=== PATIENT | male | born 1965 | race Caucasian/White ===

== ENCOUNTER 2021-08-22 18:09 | Inpatient (IN) | payer BC, OTHER ==
[~2021-08-22] VITALS: Ht 165.1 cm; Wt 88.5 kg
[2021-08-22 18:55] LABS: BASOPHILS # (AUTO) 0.1 (0.0-0.1); BASOPHILS % 0.7 % (0.0-1.0); EOSINOPHILS # (AUTO) 0.5 (0.0-0.4); EOSINOPHILS % 4.2 % (0.0-6.0); HEMATOCRIT 36.9 % (38.2-49.6); HEMOGLOBIN 12.1 g/dL (14.0-18.0); LYMPHOCYTES # (AUTO) 1.6 (1.0-3.2); MEAN CORPUSCULAR HEMOGLOBIN 29.4 pg (28-32); MEAN CORPUSCULAR HGB CONC 32.8 g/dL (31-35); MEAN CORPUSCULAR VOLUME 89.8 fL (81-99); MONOCYTES # (AUTO) 1.4 (0.2-0.8); MONOCYTES % 12.9 % (4.4-11.3); NEUTROPHILS # (AUTO) 7.2 (2.1-6.9); NEUTROPHILS % 66.5 % (38.7-80.0); PLATELET COUNT 186 x10e3/uL (140-360); RED BLOOD COUNT 4.11 x10e6/uL (4.3-5.7); RED CELL DISTRIBUTION WIDTH 15.4 % (11.7-14.4)
[2021-08-22] MEDS ORDERED: PIPERACILLIN/TAZOBACTAM 3.375 GM in SODIUM CHLORIDE 0.9% 50ML 50 ML IV SCH (19:00)
[2021-08-22 19:16] LABS: ALBUMIN 3.4 g/dL (3.5-5.0); ALBUMIN/GLOBULIN RATIO 0.8 (0.8-2.0); ANION GAP 15.9 mmol/L (8-16); CREATININE, SERUM 1.55 mg/dL (0.72-1.25); POTASSIUM 3.9 mmol/L (3.5-5.1)
[2021-08-22] MEDS ORDERED: SODIUM CHLORIDE FLUSH 10 ML SYR INJ PRN (20:15)
[2021-08-22] MEDS ORDERED: ONDANSETRON HCL INJ 2MG/ML 2ML 2 MG/ML VIAL IV PRN (20:15)
[2021-08-22] MEDS ORDERED: DEXTROSE 50% SYRINGE 50 ML IV PRN (20:30)
[2021-08-22] MEDS ORDERED: ACETAMINOPHEN 325 MG TAB PO PRN (20:45)
[2021-08-22] MEDS ORDERED: ACETAMINOPHEN/CODEINE 300MG - 30MG TAB PO PRN (20:45)
[2021-08-22] MEDS: INSULIN LISPRO 100 UNIT/1 ML 3ML VIAL SQ SCH (21:00)
[2021-08-22] MEDS ORDERED: HYDROMORPHONE 1MG/1ML INJ IV PRN (21:00)
[2021-08-22 21:14] VITALS: BP 128/94
[2021-08-22 21:30] VITALS: BP 128/94
[2021-08-22] MEDS ORDERED: SODIUM CHLORIDE 0.9% 250ML 250 ML ONE (21:40)
[2021-08-22] MEDS: Vancomycin IV 1.25 GM in SODIUM CHLORIDE 0.9% 250ML 250 ML IV SCH (21:45)
[2021-08-22] MEDS ORDERED: ULTRAM50 MG PO (22:08)
[2021-08-22] MEDS ORDERED: ASPIRIN81 MG PO (22:08)
[2021-08-22] MEDS ORDERED: LANTUS 3ML100 UNITS/ SC (22:08)
[2021-08-22] MEDS ORDERED: VITAMIN B-1100 M1 PO (22:08)
[2021-08-22] MEDS ORDERED: METFORMIN HCL500 MG PO (22:08)
[2021-08-22] MEDS ORDERED: BENICAR20 MG PO (22:08)
[2021-08-22] MEDS ORDERED: FOLIC ACID-VIT1 EACH PO (22:08)
[2021-08-22] MEDS ORDERED: JARDIANCE10 MG PO (22:08)
[2021-08-22] MEDS ORDERED: DICLOFENAC SODI75 MG PO (22:08)
[2021-08-22] MEDS ORDERED: AMLODIPINE BESY10 MG PO (22:08)
[2021-08-22] MEDS ORDERED: CLONIDINE HCL0.2 MG PO (22:08)
[2021-08-22] MEDS ORDERED: CYMBALTA60 MG PO (22:08)
[2021-08-22] MEDS ORDERED: NEURONTIN400 MG PO (22:08)
[2021-08-22] MEDS ORDERED: CARVEDILOL12.5 MG PO (22:08)
[2021-08-23] VITALS (9 sets, daily range): BP systolic 105–157; BP diastolic 58–98
[2021-08-23] MEDS: PIPERACILLIN/TAZOBACTAM 3.375 GM in SODIUM CHLORIDE 0.9% 50ML 50 ML IV SCH ×3 (04:25→19:57)
[2021-08-23] MEDS ORDERED: HYDROMORPHONE 1MG/1ML INJ IV PRN (04:45)
[2021-08-23 04:55] LABS: BASOPHILS # (AUTO) 0.1 (0.0-0.1); BASOPHILS % 0.8 % (0.0-1.0); EOSINOPHILS # (AUTO) 0.5 (0.0-0.4); EOSINOPHILS % 5.4 % (0.0-6.0); HEMATOCRIT 36.4 % (38.2-49.6); HEMOGLOBIN 11.9 g/dL (14.0-18.0); LYMPHOCYTES # (AUTO) 1.6 (1.0-3.2); LYMPHOCYTES % 18.5 % (18.0-39.1); MEAN CORPUSCULAR HEMOGLOBIN 29.1 pg (28-32); MEAN CORPUSCULAR HGB CONC 32.7 g/dL (31-35); MONOCYTES # (AUTO) 1.1 (0.2-0.8); MONOCYTES % 12.5 % (4.4-11.3); NEUTROPHILS # (AUTO) 5.5 (2.1-6.9); NEUTROPHILS % 62.2 % (38.7-80.0); PLATELET COUNT 178 x10e3/uL (140-360); RED BLOOD COUNT 4.09 x10e6/uL (4.3-5.7); RED CELL DISTRIBUTION WIDTH 15.2 % (11.7-14.4)
[2021-08-23 05:19] LABS: ANION GAP 11.2 mmol/L (8-16); CALCIUM 8.9 mg/dL (8.4-10.2); CREATININE, SERUM 1.45 mg/dL (0.72-1.25); POTASSIUM 4.2 mmol/L (3.5-5.1)
[2021-08-23] MEDS: INSULIN LISPRO 100 UNIT/1 ML 3ML VIAL SQ SCH ×4 (07:30→20:33)
[2021-08-23] MEDS ORDERED: DULOXETINE HCL 30 MG DELAYED RELEASE PO SCH (09:00)
[2021-08-23] MEDS ORDERED: GABAPENTIN 400 MG CAP PO SCH (09:00)
[2021-08-23] MEDS ORDERED: INSULIN GLARGINE 100 UNITS/ML VIAL SC SCH (09:00)
[2021-08-23] MEDS: HYDROMORPHONE 2MG/ML 2 MG/ML ML IV PRN ×4 (09:50→22:41)
[2021-08-23] MEDS: Vancomycin IV 1.25 GM in SODIUM CHLORIDE 0.9% 250ML 250 ML IV SCH ×2 (09:56→20:47)
[2021-08-23] MEDS: DULOXETINE HCL 30 MG DELAYED RELEASE PO SCH (09:57)
[2021-08-23] MEDS: ASPIRIN 81 MG CHEW TAB PO SCH (09:57)
[2021-08-23] MEDS: OLMESARTAN 20 MG TAB PO SCH (09:57)
[2021-08-23] MEDS: CARVEDILOL 12.5 MG TAB PO SCH ×2 (09:57→16:10)
[2021-08-23] MEDS: AMLODIPINE BESYLATE 10 MG TAB PO SCH (09:58)
[2021-08-23] MEDS: EMPAGLIFLOZIN 10 MG TABLET PO SCH (09:58)
[2021-08-23] MEDS: THIAMINE HCL 100 MG TAB PO SCH (09:59)
[2021-08-23] MEDS: GABAPENTIN 300 MG CAP PO SCH ×2 (10:05→16:10)
[2021-08-23] MEDS: TRAMADOL HCL 50 MG TAB PO PRN ×2 (15:18→23:31)
[2021-08-24] VITALS (7 sets, daily range): BP systolic 116–160; BP diastolic 93–112
[2021-08-24] MEDS: HYDROMORPHONE 2MG/ML 2 MG/ML ML IV PRN ×5 (03:18→20:51)
[2021-08-24] MEDS: PIPERACILLIN/TAZOBACTAM 3.375 GM in SODIUM CHLORIDE 0.9% 50ML 50 ML IV SCH ×3 (04:17→20:56)
[2021-08-24] MEDS: INSULIN LISPRO 100 UNIT/1 ML 3ML VIAL SQ SCH ×4 (07:30→21:35)
[2021-08-24] MEDS: ASPIRIN 81 MG CHEW TAB PO SCH (08:17)
[2021-08-24] MEDS: CARVEDILOL 12.5 MG TAB PO SCH ×2 (08:18→16:42)
[2021-08-24] MEDS: GABAPENTIN 300 MG CAP PO SCH ×2 (08:18→16:42)
[2021-08-24] MEDS: DULOXETINE HCL 30 MG DELAYED RELEASE PO SCH (08:18)
[2021-08-24] MEDS: EMPAGLIFLOZIN 10 MG TABLET PO SCH (08:18)
[2021-08-24] MEDS: OLMESARTAN 20 MG TAB PO SCH (08:18)
[2021-08-24] MEDS: AMLODIPINE BESYLATE 10 MG TAB PO SCH (08:19)
[2021-08-24] MEDS: THIAMINE HCL 100 MG TAB PO SCH (08:19)
[2021-08-24] MEDS ORDERED: Vancomycin IV 1 GM in SODIUM CHLORIDE 0.9% 250ML 250 ML IV SCH (09:15)
[2021-08-24] MEDS: LISINOPRIL 10 MG TAB PO SCH ×3 (10:00→11:59)
[2021-08-24] MEDS: TRAMADOL HCL 50 MG TAB PO PRN ×2 (11:40→14:00)
[2021-08-24] MEDS ORDERED: ONDANSETRON HCL 4 MG ORAL DISINTEGRATING TAB PO PRN (14:30)
[2021-08-25] VITALS (7 sets, daily range): BP systolic 123–154; BP diastolic 79–99
[2021-08-25] MEDS: HYDROMORPHONE 2MG/ML 2 MG/ML ML IV PRN ×6 (01:30→22:25)
[2021-08-25] MEDS: PIPERACILLIN/TAZOBACTAM 3.375 GM in SODIUM CHLORIDE 0.9% 50ML 50 ML IV SCH ×3 (03:19→19:53)
[2021-08-25] MEDS ORDERED: LIDOCAINE HCL 2% LOCAL 20 ML VIAL INJ ONE (08:30)
[2021-08-25] MEDS: CARVEDILOL 12.5 MG TAB PO SCH ×2 (08:44→17:13)
[2021-08-25] MEDS: EMPAGLIFLOZIN 10 MG TABLET PO SCH (08:44)
[2021-08-25] MEDS: GABAPENTIN 300 MG CAP PO SCH ×2 (08:44→17:08)
[2021-08-25] MEDS: INSULIN LISPRO 100 UNIT/1 ML 3ML VIAL SQ SCH ×4 (08:44→21:00)
[2021-08-25] MEDS: OLMESARTAN 20 MG TAB PO SCH (08:44)
[2021-08-25] MEDS: ASPIRIN 81 MG CHEW TAB PO SCH (08:44)
[2021-08-25] MEDS: DULOXETINE HCL 30 MG DELAYED RELEASE PO SCH (08:44)
[2021-08-25] MEDS: AMLODIPINE BESYLATE 10 MG TAB PO SCH (08:45)
[2021-08-25] MEDS: MUPIROCIN 2% OINT 22 GM TUBE TOP SCH (08:45)
[2021-08-25] MEDS: THIAMINE HCL 100 MG TAB PO SCH (08:45)
[2021-08-25] MEDS ORDERED: LIDOCAINE HCL 1% LOCAL INJ 20 ML VIAL INJ PRN (09:45)
[2021-08-25] MEDS ORDERED: Vancomycin IV 1 GM in SODIUM CHLORIDE 0.9% 250ML 250 ML IV ONE (10:00)
[2021-08-25] MEDS: TRAMADOL HCL 50 MG TAB PO PRN (17:12)
[2021-08-26] VITALS (10 sets, daily range): BP systolic 126–174; BP diastolic 96–112
[2021-08-26] MEDS: HYDROMORPHONE 2MG/ML 2 MG/ML ML IV PRN ×3 (02:40→12:00)
[2021-08-26] MEDS: PIPERACILLIN/TAZOBACTAM 3.375 GM in SODIUM CHLORIDE 0.9% 50ML 50 ML IV SCH ×3 (04:54→20:39)
[2021-08-26] MEDS: TRAMADOL HCL 50 MG TAB PO PRN ×2 (07:22→20:39)
[2021-08-26] MEDS: INSULIN LISPRO 100 UNIT/1 ML 3ML VIAL SQ SCH ×4 (07:30→20:40)
[2021-08-26] MEDS: GABAPENTIN 300 MG CAP PO SCH ×2 (10:00→17:55)
[2021-08-26] MEDS: DULOXETINE HCL 30 MG DELAYED RELEASE PO SCH (10:00)
[2021-08-26] MEDS: CARVEDILOL 12.5 MG TAB PO SCH ×2 (10:00→17:55)
[2021-08-26] MEDS: LISINOPRIL 10 MG TAB PO SCH (10:00)
[2021-08-26] MEDS: ASPIRIN 81 MG CHEW TAB PO SCH (10:00)
[2021-08-26] MEDS: EMPAGLIFLOZIN 10 MG TABLET PO SCH (10:00)
[2021-08-26] MEDS: THIAMINE HCL 100 MG TAB PO SCH (10:00)
[2021-08-26] MEDS: OLMESARTAN 20 MG TAB PO SCH (10:00)
[2021-08-26] MEDS: AMLODIPINE BESYLATE 10 MG TAB PO SCH (10:00)
[2021-08-26 10:02] LABS: BASOPHILS # (AUTO) 0.1 (0.0-0.1); EOSINOPHILS # (AUTO) 0.7 (0.0-0.4); EOSINOPHILS % 6.8 % (0.0-6.0); HEMATOCRIT 40.8 % (38.2-49.6); HEMOGLOBIN 13.3 g/dL (14.0-18.0); LYMPHOCYTES # (AUTO) 1.3 (1.0-3.2); LYMPHOCYTES % 13.2 % (18.0-39.1); MEAN CORPUSCULAR HEMOGLOBIN 29.6 pg (28-32); MEAN CORPUSCULAR HGB CONC 32.6 g/dL (31-35); MEAN CORPUSCULAR VOLUME 90.7 fL (81-99); MONOCYTES # (AUTO) 0.8 (0.2-0.8); NEUTROPHILS # (AUTO) 7.1 (2.1-6.9); NEUTROPHILS % 70.4 % (38.7-80.0); PLATELET COUNT 221 x10e3/uL (140-360); RED CELL DISTRIBUTION WIDTH 14.9 % (11.7-14.4)
[2021-08-26 10:35] LABS: ALBUMIN 3.5 g/dL (3.5-5.0); ALBUMIN/GLOBULIN RATIO 0.8 (0.8-2.0); ANION GAP 15.5 mmol/L (8-16); CALCIUM 9.8 mg/dL (8.4-10.2); CREATININE, SERUM 1.12 mg/dL (0.72-1.25); POTASSIUM 4.5 mmol/L (3.5-5.1)
[2021-08-26] MEDS: Vancomycin IV 1 GM in SODIUM CHLORIDE 0.9% 250ML 250 ML IV SCH ×2 (11:15→14:44)
[2021-08-26] MEDS: CLONIDINE HCL 0.2 MG TAB PO PRN (11:45)
[2021-08-26] MEDS: HYDROMORPHONE 1MG/1ML INJ IV PRN (17:54)
[2021-08-26] MEDS: METFORMIN HCL 500 MG TAB CR PO SCH (17:55)
[2021-08-27] VITALS: BP 157/102
[2021-08-27] MEDS: CLONIDINE HCL 0.2 MG TAB PO PRN (01:05)
[2021-08-27] MEDS: HYDROMORPHONE 1MG/1ML INJ IV PRN ×4 (01:06→21:00)
[2021-08-27 04:00] VITALS: BP 139/92
[2021-08-27] MEDS: PIPERACILLIN/TAZOBACTAM 3.375 GM in SODIUM CHLORIDE 0.9% 50ML 50 ML IV SCH ×3 (04:09→20:46)
[2021-08-27 06:34] LABS: BASOPHILS # (AUTO) 0.1 (0.0-0.1); BASOPHILS % 1.2 % (0.0-1.0); EOSINOPHILS # (AUTO) 0.6 (0.0-0.4); EOSINOPHILS % 5.4 % (0.0-6.0); HEMATOCRIT 39.8 % (38.2-49.6); HEMOGLOBIN 13.2 g/dL (14.0-18.0); LYMPHOCYTES # (AUTO) 1.7 (1.0-3.2); LYMPHOCYTES % 16.7 % (18.0-39.1); MEAN CORPUSCULAR HEMOGLOBIN 29.3 pg (28-32); MEAN CORPUSCULAR HGB CONC 33.2 g/dL (31-35); MEAN CORPUSCULAR VOLUME 88.4 fL (81-99); MONOCYTES # (AUTO) 0.9 (0.2-0.8); NEUTROPHILS # (AUTO) 6.8 (2.1-6.9); NEUTROPHILS % 67.2 % (38.7-80.0); PLATELET COUNT 241 x10e3/uL (140-360); RED CELL DISTRIBUTION WIDTH 14.6 % (11.7-14.4)
[2021-08-27 06:58] LABS: ANION GAP 17.6 mmol/L (8-16); CALCIUM 9.5 mg/dL (8.4-10.2); CREATININE, SERUM 0.97 mg/dL (0.72-1.25); POTASSIUM 3.6 mmol/L (3.5-5.1)
[2021-08-27] MEDS: INSULIN LISPRO 100 UNIT/1 ML 3ML VIAL SQ SCH ×4 (07:30→21:50)
[2021-08-27 08:39] VITALS: BP 139/92
[2021-08-27] MEDS: METFORMIN HCL 500 MG TAB CR PO SCH ×2 (08:49→17:05)
[2021-08-27] MEDS: DULOXETINE HCL 30 MG DELAYED RELEASE PO SCH (08:50)
[2021-08-27] MEDS: EMPAGLIFLOZIN 10 MG TABLET PO SCH (08:50)
[2021-08-27] MEDS: GABAPENTIN 300 MG CAP PO SCH ×2 (08:50→17:05)
[2021-08-27] MEDS: CARVEDILOL 12.5 MG TAB PO SCH ×2 (08:50→17:05)
[2021-08-27] MEDS: ASPIRIN 81 MG CHEW TAB PO SCH (08:50)
[2021-08-27] MEDS: OLMESARTAN 20 MG TAB PO SCH (08:50)
[2021-08-27] MEDS: THIAMINE HCL 100 MG TAB PO SCH (08:51)
[2021-08-27] MEDS: AMLODIPINE BESYLATE 10 MG TAB PO SCH (08:51)
[2021-08-27] MEDS: TRAMADOL HCL 50 MG TAB PO PRN ×2 (08:51→17:06)
[2021-08-27] MEDS ORDERED: SODIUM CHLORIDE 0.9% 250ML 250 ML ONE (11:18)
[2021-08-27 16:11] VITALS: BP 152/88
[2021-08-27] MEDS: MUPIROCIN 2% OINT 22 GM TUBE TOP SCH (18:00)
[2021-08-27 20:25] VITALS: BP 139/97
[2021-08-27 20:29] VITALS: BP 139/97
[2021-08-28 00:08] VITALS: BP 157/111
[2021-08-28] MEDS: TRAMADOL HCL 50 MG TAB PO PRN (00:33)
[2021-08-28] MEDS: CLONIDINE HCL 0.2 MG TAB PO PRN (00:34)
[2021-08-28] MEDS: PIPERACILLIN/TAZOBACTAM 3.375 GM in SODIUM CHLORIDE 0.9% 50ML 50 ML IV SCH ×2 (04:50→12:38)
[2021-08-28] MEDS: HYDROMORPHONE 1MG/1ML INJ IV PRN ×2 (04:58→13:23)
[2021-08-28 05:11] VITALS: BP 163/99
[2021-08-28 06:12] LABS: BASOPHILS # (AUTO) 0.1 (0.0-0.1); BASOPHILS % 1.3 % (0.0-1.0); EOSINOPHILS # (AUTO) 0.6 (0.0-0.4); EOSINOPHILS % 5.2 % (0.0-6.0); HEMATOCRIT 43.4 % (38.2-49.6); HEMOGLOBIN 14.5 g/dL (14.0-18.0); LYMPHOCYTES # (AUTO) 2.3 (1.0-3.2); LYMPHOCYTES % 20.2 % (18.0-39.1); MEAN CORPUSCULAR HEMOGLOBIN 29.2 pg (28-32); MEAN CORPUSCULAR HGB CONC 33.4 g/dL (31-35); MEAN CORPUSCULAR VOLUME 87.5 fL (81-99); MONOCYTES % 8.9 % (4.4-11.3); NEUTROPHILS # (AUTO) 7.1 (2.1-6.9); NEUTROPHILS % 63.4 % (38.7-80.0); PLATELET COUNT 283 x10e3/uL (140-360); RED BLOOD COUNT 4.96 x10e6/uL (4.3-5.7); RED CELL DISTRIBUTION WIDTH 14.8 % (11.7-14.4)
[2021-08-28 06:43] LABS: ANION GAP 14.7 mmol/L (8-16); CALCIUM 9.6 mg/dL (8.4-10.2); POTASSIUM 3.7 mmol/L (3.5-5.1)
[2021-08-28] MEDS: INSULIN LISPRO 100 UNIT/1 ML 3ML VIAL SQ SCH ×3 (07:30→16:38)
[2021-08-28 08:00] VITALS: BP 163/99
[2021-08-28] MEDS: METFORMIN HCL 500 MG TAB CR PO SCH ×2 (08:26→16:47)
[2021-08-28 08:32] VITALS: BP 151/101
[2021-08-28] MEDS ORDERED: HYDRALAZINE HCL 20 MG/ML VIAL IV PRN (09:15)
[2021-08-28] MEDS: THIAMINE HCL 100 MG TAB PO SCH (09:45)
[2021-08-28] MEDS: GABAPENTIN 300 MG CAP PO SCH ×2 (09:45→16:47)
[2021-08-28] MEDS: ASPIRIN 81 MG CHEW TAB PO SCH (09:45)
[2021-08-28] MEDS: CARVEDILOL 12.5 MG TAB PO SCH ×2 (09:45→16:47)
[2021-08-28] MEDS: OLMESARTAN 20 MG TAB PO SCH (09:45)
[2021-08-28] MEDS: AMLODIPINE BESYLATE 10 MG TAB PO SCH (09:45)
[2021-08-28] MEDS: EMPAGLIFLOZIN 10 MG TABLET PO SCH (09:45)
[2021-08-28] MEDS: MUPIROCIN 2% OINT 22 GM TUBE TOP SCH (09:45)
[2021-08-28] MEDS: DULOXETINE HCL 30 MG DELAYED RELEASE PO SCH (09:45)
[2021-08-28] MEDS: Vancomycin IV 1 GM in SODIUM CHLORIDE 0.9% 250ML 250 ML IV SCH (10:47)
[2021-08-28 13:05] VITALS: BP 173/98
[2021-08-28] MEDS ORDERED: COREG12.5 MG PO (15:12)
[2021-08-28] MEDS ORDERED: HYDRALAZINE HCL25 MG PO (15:13)
[2021-08-28 16:58] VITALS: BP 150/101
[2021-08-28] MEDS ORDERED: HYDRALAZINE HCL 25 MG TAB PO SCH (17:00)
== END 2021-08-28 17:38 | disposition home or self-care (01) | DRG 623 ==
LOC: ER 19:46 → ERHOLD 20:14 → MED/SURG2 21:02
PROVIDERS: ADMIT Internal Medicine; ATTEND Internal Medicine
PROC: 0JBQ0ZZ Excision of Right Foot Subcutaneous Tissue and Fascia, Open Approach (ICD-10-PCS; principal; 2021-08-25)
DX: E11.69 Type 2 diabetes mellitus with other specified complication (principal); L97.416 Non-pressure chronic ulcer of right heel and midfoot with bone involvement without evidence of necrosis; M86.8X7 Other osteomyelitis, ankle and foot; E11.610 Type 2 diabetes mellitus with diabetic neuropathic arthropathy; E11.621 Type 2 diabetes mellitus with foot ulcer; Z79.899 Other long term (current) drug therapy; E11.51 Type 2 diabetes mellitus with diabetic peripheral angiopathy without gangrene; N18.30 Chronic kidney disease, stage 3 unspecified; E11.21 Type 2 diabetes mellitus with diabetic nephropathy; Z79.4 Long term (current) use of insulin; E11.649 Type 2 diabetes mellitus with hypoglycemia without coma; N17.9 Acute kidney failure, unspecified; E66.9 Obesity, unspecified; Z68.32 Body mass index [BMI] 32.0-32.9, adult; F17.220 Nicotine dependence, chewing tobacco, uncomplicated; I11.0 Hypertensive heart disease with heart failure; I50.9 Heart failure, unspecified; F32.A Depression, unspecified; E78.49 Other hyperlipidemia; Z20.822 Contact with and (suspected) exposure to COVID-19
CPT/HCPCS: 36415; 76770; 80048; 80053; 80202; 82948; 85025; 87040; 94799; 96372; 99251; 99284; J1170; J1815; J2001; J2543; J3370; J3411; J7050; U0002

== ENCOUNTER 2021-08-30 16:01 | Inpatient (IN) | payer BC ==
[~2021-08-30] VITALS: Ht 165.1 cm; Wt 88.5 kg
[~2021-08-30 16:01] MED LIST: AMLODIPINE BESY10 MG PO; ASPIRIN81 MG PO; BENICAR20 MG PO; CARVEDILOL12.5 MG PO; CLONIDINE HCL0.2 MG PO; COREG12.5 MG PO; CYMBALTA60 MG PO; DICLOFENAC SODI75 MG PO; FOLIC ACID-VIT1 EACH PO; HYDRALAZINE HCL25 MG PO; JARDIANCE10 MG PO; LANTUS 3ML100 UNITS/ SC; METFORMIN HCL500 MG PO; NEURONTIN400 MG PO; ULTRAM50 MG PO; VITAMIN B-1100 M1 PO
[2021-08-30 16:47] LABS: BASOPHILS # (AUTO) 0.1 (0.0-0.1); BASOPHILS % 1.2 % (0.0-1.0); EOSINOPHILS # (AUTO) 0.4 (0.0-0.4); EOSINOPHILS % 3.4 % (0.0-6.0); HEMATOCRIT 38.5 % (38.2-49.6); HEMOGLOBIN 13.2 g/dL (14.0-18.0); LYMPHOCYTES # (AUTO) 2.2 (1.0-3.2); LYMPHOCYTES % 19.7 % (18.0-39.1); MEAN CORPUSCULAR HEMOGLOBIN 29.9 pg (28-32); MEAN CORPUSCULAR HGB CONC 34.3 g/dL (31-35); MEAN CORPUSCULAR VOLUME 87.1 fL (81-99); MONOCYTES # (AUTO) 1.2 (0.2-0.8); MONOCYTES % 10.6 % (4.4-11.3); NEUTROPHILS # (AUTO) 7.2 (2.1-6.9); NEUTROPHILS % 63.6 % (38.7-80.0); PLATELET COUNT 282 x10e3/uL (140-360); RED BLOOD COUNT 4.42 x10e6/uL (4.3-5.7); RED CELL DISTRIBUTION WIDTH 14.9 % (11.7-14.4)
[2021-08-30 17:08] LABS: ALBUMIN 3.5 g/dL (3.5-5.0); ALBUMIN/GLOBULIN RATIO 0.9 (0.8-2.0); ANION GAP 20.6 mmol/L (8-16); CALCIUM 8.5 mg/dL (8.4-10.2); CREATININE, SERUM 1.95 mg/dL (0.72-1.25); POTASSIUM 3.6 mmol/L (3.5-5.1)
[2021-08-30] MEDS ORDERED: ONDANSETRON HCL INJ 2MG/ML 2ML 2 MG/ML VIAL IV PRN (18:00)
[2021-08-30] MEDS: SODIUM CHLORIDE 0.9% 1000ML 1,000 ML IV SCH ×2 (18:43→20:45)
[2021-08-30 20:41] VITALS: BP 130/90
[2021-08-30 20:45] VITALS: BP 154/95
[2021-08-30] MEDS ORDERED: LANTUS 3ML100 UNITS/ SQ (20:49)
[2021-08-30 21:00] VITALS: BP 154/95
[2021-08-30] MEDS ORDERED: ACETAMINOPHEN 325 MG TAB PO PRN (21:45)
[2021-08-30] MEDS: HYDROCODONE/APAP 10MG-325MG TAB PO PRN (21:54)
[2021-08-30] MEDS ORDERED: CIPRO500 MG PO (22:49)
[2021-08-30] MEDS ORDERED: DOXYCYCLINE HY100 MG PO (22:49)
[2021-08-30] MEDS: DOXYCYCLINE HYCLATE TABLET 100 MG TAB PO SCH (22:58)
[2021-08-30] MEDS: CIPROFLOXACIN 500 MG TAB PO SCH (22:58)
[2021-08-30] MEDS ORDERED: TRAMADOL HCL 50 MG TAB PO PRN (23:00)
[2021-08-30] MEDS ORDERED: DICLOFENAC SOD 50 MG TAB PO SCH (23:00)
[2021-08-30] MEDS ORDERED: INSULIN GLARGINE 100 UNITS/ML VIAL SQ SCH (23:00)
[2021-08-30] MEDS: CARVEDILOL 12.5 MG TAB PO SCH (23:06)
[2021-08-30] MEDS: ZOLPIDEM TARTRATE 10 MG TAB PO PRN (23:07)
[2021-08-30] MEDS: HYDRALAZINE HCL 25 MG TAB PO SCH (23:07)
[2021-08-30 23:54] VITALS: BP 167/102
[2021-08-31] VITALS (7 sets, daily range): BP systolic 145–170; BP diastolic 99–109
[2021-08-31] MEDS: SODIUM CHLORIDE 0.9% 1000ML 1,000 ML IV SCH (04:48)
[2021-08-31 05:36] LABS: ANION GAP 12.6 mmol/L (8-16); CALCIUM 8.7 mg/dL (8.4-10.2); CREATININE, SERUM 1.37 mg/dL (0.72-1.25); POTASSIUM 3.6 mmol/L (3.5-5.1)
[2021-08-31] MEDS: ASPIRIN 81 MG CHEW TAB PO SCH (08:45)
[2021-08-31] MEDS: HYDRALAZINE HCL 25 MG TAB PO SCH (08:45)
[2021-08-31] MEDS: OLMESARTAN 20 MG TAB PO SCH (08:46)
[2021-08-31] MEDS: CIPROFLOXACIN 500 MG TAB PO SCH ×2 (08:46→20:36)
[2021-08-31] MEDS: DULOXETINE HCL 30 MG DELAYED RELEASE PO SCH (08:47)
[2021-08-31] MEDS: CARVEDILOL 12.5 MG TAB PO SCH ×2 (08:47→20:36)
[2021-08-31] MEDS: FOLIC ACID/CYANOCOB/PYRIDOXINE TAB PO SCH (08:50)
[2021-08-31 08:53] LABS: BASOPHILS # (AUTO) 0.1 (0.0-0.1); BASOPHILS % 1.3 % (0.0-1.0); EOSINOPHILS # (AUTO) 0.7 (0.0-0.4); EOSINOPHILS % 6.7 % (0.0-6.0); HEMATOCRIT 39.4 % (38.2-49.6); HEMOGLOBIN 13.3 g/dL (14.0-18.0); LYMPHOCYTES # (AUTO) 2.1 (1.0-3.2); LYMPHOCYTES % 20.6 % (18.0-39.1); MEAN CORPUSCULAR HEMOGLOBIN 29.5 pg (28-32); MEAN CORPUSCULAR HGB CONC 33.8 g/dL (31-35); MEAN CORPUSCULAR VOLUME 87.4 fL (81-99); MONOCYTES % 9.9 % (4.4-11.3); NEUTROPHILS # (AUTO) 6.3 (2.1-6.9); NEUTROPHILS % 60.7 % (38.7-80.0); PLATELET COUNT 279 x10e3/uL (140-360); RED BLOOD COUNT 4.51 x10e6/uL (4.3-5.7); RED CELL DISTRIBUTION WIDTH 14.9 % (11.7-14.4)
[2021-08-31] MEDS: EMPAGLIFLOZIN 10 MG TABLET PO SCH (08:54)
[2021-08-31] MEDS: DOXYCYCLINE HYCLATE TABLET 100 MG TAB PO SCH ×2 (08:55→20:36)
[2021-08-31] MEDS: AMLODIPINE BESYLATE 10 MG TAB PO SCH (08:55)
[2021-08-31] MEDS: THIAMINE HCL 100 MG TAB PO SCH (08:55)
[2021-08-31] MEDS ORDERED: DEXTROSE 50% SYRINGE 50 ML IV PRN (09:00)
[2021-08-31] MEDS ORDERED: HYDRALAZINE HCL 20 MG/ML VIAL IV PRN (09:00)
[2021-08-31] MEDS ORDERED: METFORMIN HCL 500 MG TAB PO SCH (09:00)
[2021-08-31] MEDS: HYDROCODONE/APAP 10MG-325MG TAB PO PRN ×3 (09:10→17:55)
[2021-08-31] MEDS: INSULIN LISPRO 100 UNIT/1 ML 3ML VIAL SQ SCH ×3 (11:30→21:00)
[2021-08-31] MEDS ORDERED: BALSAM PERU/CASTOR OIL 60 GM OINT...G. TP PRN (13:45)
[2021-08-31] MEDS: BACITRACIN ZINC 15 GM OINT TOP SCH (15:43)
[2021-08-31] MEDS ORDERED: HYDRALAZINE HCL 25 MG TAB PO SCH (17:00)
[2021-08-31] MEDS: ZOLPIDEM TARTRATE 10 MG TAB PO PRN (20:38)
[2021-09-01] VITALS (7 sets, daily range): BP systolic 130–162; BP diastolic 90–111
[2021-09-01] MEDS: HYDROCODONE/APAP 10MG-325MG TAB PO PRN ×7 (00:26→21:10)
[2021-09-01 05:18] LABS: CALCIUM 9.4 mg/dL (8.4-10.2); CREATININE, SERUM 1.22 mg/dL (0.72-1.25)
[2021-09-01] MEDS: INSULIN LISPRO 100 UNIT/1 ML 3ML VIAL SQ SCH ×4 (07:30→21:11)
[2021-09-01] MEDS ORDERED: ONDANSETRON HCL 4 MG ORAL DISINTEGRATING TAB PO PRN (07:45)
[2021-09-01] MEDS: HYDRALAZINE HCL 25 MG TAB PO SCH ×3 (08:22→23:48)
[2021-09-01] MEDS: OLMESARTAN 20 MG TAB PO SCH (08:48)
[2021-09-01] MEDS: ASPIRIN 81 MG CHEW TAB PO SCH (08:48)
[2021-09-01] MEDS: CIPROFLOXACIN 500 MG TAB PO SCH ×3 (08:48→21:02)
[2021-09-01] MEDS: THIAMINE HCL 100 MG TAB PO SCH (08:49)
[2021-09-01] MEDS: BACITRACIN ZINC 15 GM OINT TOP SCH (08:49)
[2021-09-01] MEDS: DULOXETINE HCL 30 MG DELAYED RELEASE PO SCH (08:49)
[2021-09-01] MEDS: FOLIC ACID/CYANOCOB/PYRIDOXINE TAB PO SCH (08:49)
[2021-09-01] MEDS: DOXYCYCLINE HYCLATE TABLET 100 MG TAB PO SCH ×3 (08:49→21:02)
[2021-09-01] MEDS: EMPAGLIFLOZIN 10 MG TABLET PO SCH (08:49)
[2021-09-01] MEDS: CARVEDILOL 12.5 MG TAB PO SCH ×2 (08:49→21:02)
[2021-09-01] MEDS: AMLODIPINE BESYLATE 10 MG TAB PO SCH (08:49)
[2021-09-02 00:57] VITALS: BP 118/92
[2021-09-02 05:26] VITALS: BP 153/98
[2021-09-02] MEDS: INSULIN LISPRO 100 UNIT/1 ML 3ML VIAL SQ SCH ×2 (07:14→11:56)
[2021-09-02] MEDS: HYDRALAZINE HCL 25 MG TAB PO SCH (08:05)
[2021-09-02] MEDS: ASPIRIN 81 MG CHEW TAB PO SCH (08:05)
[2021-09-02] MEDS: OLMESARTAN 20 MG TAB PO SCH (08:05)
[2021-09-02] MEDS: CIPROFLOXACIN 500 MG TAB PO SCH (08:05)
[2021-09-02 08:06] VITALS: BP 161/107
[2021-09-02] MEDS: AMLODIPINE BESYLATE 10 MG TAB PO SCH (08:06)
[2021-09-02] MEDS: THIAMINE HCL 100 MG TAB PO SCH (08:06)
[2021-09-02] MEDS: DOXYCYCLINE HYCLATE TABLET 100 MG TAB PO SCH (08:06)
[2021-09-02] MEDS: FOLIC ACID/CYANOCOB/PYRIDOXINE TAB PO SCH (08:06)
[2021-09-02] MEDS: DULOXETINE HCL 30 MG DELAYED RELEASE PO SCH (08:06)
[2021-09-02] MEDS: EMPAGLIFLOZIN 10 MG TABLET PO SCH (08:06)
[2021-09-02] MEDS: CARVEDILOL 12.5 MG TAB PO SCH (08:06)
[2021-09-02 11:18] VITALS: BP 121/91
[2021-09-02] MEDS ORDERED: HYDRALAZINE HCL50 MG PO (12:03)
== END 2021-09-02 13:44 | disposition home or self-care (01) | DRG 638 ==
LOC: ER 16:39 → ERHOLD 17:51 → MED/SURG 20:13 → OBSVTOIN 09-01 10:02
PROVIDERS: ADMIT Internal Medicine; ATTEND Internal Medicine
DX: E11.621 Type 2 diabetes mellitus with foot ulcer (principal); L97.412 Non-pressure chronic ulcer of right heel and midfoot with fat layer exposed; N17.9 Acute kidney failure, unspecified; E11.22 Type 2 diabetes mellitus with diabetic chronic kidney disease; N18.30 Chronic kidney disease, stage 3 unspecified; Z79.899 Other long term (current) drug therapy; E11.40 Type 2 diabetes mellitus with diabetic neuropathy, unspecified; E11.21 Type 2 diabetes mellitus with diabetic nephropathy; I10 Essential (primary) hypertension; I95.9 Hypotension, unspecified; G47.00 Insomnia, unspecified; K21.9 Gastro-esophageal reflux disease without esophagitis; I95.1 Orthostatic hypotension; E11.610 Type 2 diabetes mellitus with diabetic neuropathic arthropathy; S91.204A Unspecified open wound of right lesser toe(s) with damage to nail, initial encounter; Z20.822 Contact with and (suspected) exposure to COVID-19
CPT/HCPCS: 36415; 70450; 80048; 80053; 82948; 84484; 85025; 93005; 96372; 97139; 99251; 99284; G0378; J0360; J1815; J3411; J7030; U0002

== ENCOUNTER 2021-09-24 17:37 | Inpatient (IN) | payer BC ==
[~2021-09-24] VITALS: Ht 165.1 cm; Wt 84.4 kg
[~2021-09-24 17:37] MED LIST changes: +CIPRO500 MG PO; +DOXYCYCLINE HY100 MG PO; +HYDRALAZINE HCL50 MG PO; +LANTUS 3ML100 UNITS/ SQ
[2021-09-24] MEDS ORDERED: SODIUM CHLORIDE 0.9% 1000ML 1,000 ML IV ONE ×3 (17:45)
[2021-09-24] MEDS ORDERED: Vancomycin IV 1 GM in SODIUM CHLORIDE 0.9% 250ML 250 ML IV ONE (17:45)
[2021-09-24 18:02] LABS: BASOPHILS # (AUTO) 0.1 (0.0-0.1); BASOPHILS % 0.5 % (0.0-1.0); EOSINOPHILS # (AUTO) 0.1 (0.0-0.4); EOSINOPHILS % 1.1 % (0.0-6.0); HEMATOCRIT 23.9 % (38.2-49.6); HEMOGLOBIN 7.7 g/dL (14.0-18.0); LYMPHOCYTES # (AUTO) 1.3 (1.0-3.2); LYMPHOCYTES % 11.6 % (18.0-39.1); MEAN CORPUSCULAR HEMOGLOBIN 29.5 pg (28-32); MEAN CORPUSCULAR HGB CONC 32.2 g/dL (31-35); MEAN CORPUSCULAR VOLUME 91.6 fL (81-99); MONOCYTES # (AUTO) 1.2 (0.2-0.8); MONOCYTES % 10.8 % (4.4-11.3); NEUTROPHILS # (AUTO) 8.1 (2.1-6.9); NEUTROPHILS % 75.1 % (38.7-80.0); PLATELET COUNT 133 x10e3/uL (140-360); RED BLOOD COUNT 2.61 x10e6/uL (4.3-5.7); RED CELL DISTRIBUTION WIDTH 14.4 % (11.7-14.4)
[2021-09-24 18:18] LABS: ALANINE AMINOTRANSFERASE 15 IU/L (0-55); ALBUMIN 2.8 g/dL (3.5-5.0); ALBUMIN/GLOBULIN RATIO 0.6 (0.8-2.0); ALKALINE PHOSPHATASE 81 IU/L (40-150); ANION GAP 19.8 mmol/L (8-16); BLOOD UREA NITROGEN 35 mg/dL (7-26); BUN/CREATININE RATIO 21 (6-25); CALCIUM 8.7 mg/dL (8.4-10.2); CARBON DIOXIDE 17 mmol/L (22-29); CHLORIDE 102 mmol/L (98-107); CREATINE KINASE 19 IU/L (30-200); CREATININE, SERUM 1.66 mg/dL (0.72-1.25); EST GLOMERULAR FILTRATION RATE 43 ML/MIN (60-); GLUCOSE 87 mg/dL (74-118); POTASSIUM 3.8 mmol/L (3.5-5.1); SODIUM 135 mmol/L (136-145)
[2021-09-24] MEDS ORDERED: DEXTROSE 50% SYRINGE 50 ML IV PRN (19:30)
[2021-09-24] MEDS ORDERED: SODIUM CHLORIDE 0.9% 250ML 250 ML IV ONE (19:30)
[2021-09-24] MEDS ORDERED: ACETAMINOPHEN 325 MG TAB PO PRN (19:30)
[2021-09-24] MEDS ORDERED: Vancomycin IV 1 GM in SODIUM CHLORIDE 0.9% 250ML 250 ML IV SCH (19:30)
[2021-09-24] MEDS ORDERED: ALBUTEROL/IPRATROPIUM 3 ML NEB NEB ONE (20:30)
[2021-09-24] MEDS ORDERED: ALBUTEROL/IPRATROPIUM 3 ML NEB ONE (20:44)
[2021-09-24] MEDS ORDERED: ACETAMINOPHEN 325 MG TAB PO ONE (20:45)
[2021-09-24] MEDS ORDERED: METHYLPREDNISOLONE SOD SUCC 125 MG/2ML VIAL IV ONE (21:00)
[2021-09-24] MEDS ORDERED: INSULIN REGULAR, HUMAN 100 UNIT/1 ML SQ SCH (21:00)
[2021-09-24 21:32] LABS: CREATINE KINASE 28 IU/L (30-200)
[2021-09-24 21:40] VITALS: BP 143/86
[2021-09-24 21:55] VITALS: BP 143/86
[2021-09-24 22:00] VITALS: BP 129/78
[2021-09-24] MEDS: SODIUM CHLORIDE 0.9% 1000ML 1,000 ML IV SCH (22:00)
[2021-09-24] MEDS: Morphine 4mg Syringe 4 MG/ML INJ IV PRN (22:30)
[2021-09-24 23:00] VITALS: BP 134/84
[2021-09-24 23:02] VITALS: BP 134/84
[2021-09-24] MEDS: ALBUTEROL/IPRATROPIUM 3 ML NEB NEB SCH (23:55)
[2021-09-25] VITALS (12 sets, daily range): BP systolic 86–160; BP diastolic 62–103
[2021-09-25 00:15] LABS: % IRON SATURATION 11 % (15-50); IRON 24 ug/dL (65-175); TOTAL IRON BINDING CAPACITY 210 ug/dL (261-478); TRANSFERRIN 150 mg/dL (174-364)
[2021-09-25] MEDS ORDERED: SODIUM CHLORIDE 0.9% 250ML 250 ML ONE (02:24)
[2021-09-25] MEDS: Morphine 4mg Syringe 4 MG/ML INJ IV PRN ×3 (02:34→18:14)
[2021-09-25] MEDS: SODIUM CHLORIDE 0.9% 1000ML 1,000 ML IV SCH ×3 (03:30→19:30)
[2021-09-25] MEDS: ALBUTEROL/IPRATROPIUM 3 ML NEB NEB SCH ×6 (03:35→23:43)
[2021-09-25] MEDS: IRON SUCROSE 100 MG in SODIUM CHLORIDE 0.9% 100 ML 100 ML IV SCH (08:13)
[2021-09-25] MEDS ORDERED: TRAMADOL HCL 50 MG TAB PO PRN (08:15)
[2021-09-25] MEDS ORDERED: CLONIDINE HCL 0.2 MG TAB PO PRN (08:15)
[2021-09-25 08:25] LABS: BASOPHILS % 0.4 % (0.0-1.0); HEMATOCRIT 39.4 % (38.2-49.6); HEMOGLOBIN 13.3 g/dL (14.0-18.0); LYMPHOCYTES # (AUTO) 0.6 (1.0-3.2); LYMPHOCYTES % 7.5 % (18.0-39.1); MEAN CORPUSCULAR HGB CONC 33.8 g/dL (31-35); MEAN CORPUSCULAR VOLUME 88.9 fL (81-99); MONOCYTES # (AUTO) 0.1 (0.2-0.8); MONOCYTES % 1.7 % (4.4-11.3); NEUTROPHILS % 89.1 % (38.7-80.0); PLATELET COUNT 174 x10e3/uL (140-360); RED BLOOD COUNT 4.43 x10e6/uL (4.3-5.7); RED CELL DISTRIBUTION WIDTH 14.3 % (11.7-14.4)
[2021-09-25] MEDS ORDERED: METFORMIN HCL 500 MG TAB PO SCH (08:30)
[2021-09-25 08:44] LABS: CREATINE KINASE 20 IU/L (30-200)
[2021-09-25 08:46] LABS: ALBUMIN 2.9 g/dL (3.5-5.0); ALBUMIN/GLOBULIN RATIO 0.6 (0.8-2.0); ANION GAP 17.6 mmol/L (8-16); CALCIUM 8.3 mg/dL (8.4-10.2); CREATININE, SERUM 1.26 mg/dL (0.72-1.25); POTASSIUM 4.6 mmol/L (3.5-5.1)
[2021-09-25] MEDS ORDERED: DEXTROSE 50% SYRINGE 50 ML IV PRN (09:00)
[2021-09-25] MEDS ORDERED: GABAPENTIN 400 MG CAP PO SCH (09:00)
[2021-09-25] MEDS: EMPAGLIFLOZIN 10 MG TABLET PO SCH (09:05)
[2021-09-25] MEDS: DULOXETINE HCL 30 MG DELAYED RELEASE PO SCH (09:05)
[2021-09-25] MEDS: ASPIRIN 81 MG CHEW TAB PO SCH (09:05)
[2021-09-25] MEDS: INSULIN LISPRO 100 UNIT/1 ML 3ML VIAL SQ SCH ×4 (09:13→21:30)
[2021-09-25 15:03] LABS: CREATINE KINASE 20 IU/L (30-200)
[2021-09-25] MEDS: ZOLPIDEM TARTRATE 10 MG TAB PO PRN (22:00)
[2021-09-26] VITALS (14 sets, daily range): BP systolic 125–168; BP diastolic 90–113
[2021-09-26] MEDS: SODIUM CHLORIDE 0.9% 1000ML 1,000 ML IV SCH (03:34)
[2021-09-26] MEDS: ALBUTEROL/IPRATROPIUM 3 ML NEB NEB SCH ×6 (03:35→22:30)
[2021-09-26 06:16] LABS: ANION GAP 13.6 mmol/L (8-16); CALCIUM 8.3 mg/dL (8.4-10.2); CREATININE, SERUM 0.9 mg/dL (0.72-1.25); POTASSIUM 3.6 mmol/L (3.5-5.1)
[2021-09-26] MEDS: INSULIN LISPRO 100 UNIT/1 ML 3ML VIAL SQ SCH ×4 (07:30→22:08)
[2021-09-26] MEDS ORDERED: LOSARTAN POTASSIUM 100 MG TAB PO SCH (09:00)
[2021-09-26] MEDS ORDERED: AMLODIPINE BESYLATE 5 MG TAB PO SCH (09:00)
[2021-09-26] MEDS: OLMESARTAN 20 MG TAB PO SCH (09:01)
[2021-09-26] MEDS: IRON SUCROSE 100 MG in SODIUM CHLORIDE 0.9% 100 ML 100 ML IV SCH (09:01)
[2021-09-26] MEDS: EMPAGLIFLOZIN 10 MG TABLET PO SCH (09:01)
[2021-09-26] MEDS: DULOXETINE HCL 30 MG DELAYED RELEASE PO SCH (09:01)
[2021-09-26] MEDS: ASPIRIN 81 MG CHEW TAB PO SCH (09:01)
[2021-09-26] MEDS: CARVEDILOL 12.5 MG TAB PO SCH ×2 (09:01→22:16)
[2021-09-26] MEDS: AMLODIPINE BESYLATE 10 MG TAB PO SCH (09:01)
[2021-09-26] MEDS: Morphine 4mg Syringe 4 MG/ML INJ IV PRN ×3 (09:06→23:25)
[2021-09-26] MEDS: HYDROCODONE/APAP 5MG-325MG TAB PO PRN (14:29)
[2021-09-26] MEDS: ONDANSETRON HCL INJ 2MG/ML 2ML 2 MG/ML VIAL IV PRN ×2 (18:16→23:24)
[2021-09-26 19:58] LABS: CLARITY,URINE CLEAR (CLEAR); COLOR,URINE YELLOW (YELLOW); KETONES,URINE NEGATIVE (NEGATIVE); LEUKOCYTE ESTERASE ,URINE NEGATIVE (NEGATIVE); NITRITE,URINE NEGATIVE (NEGATIVE); PROTEIN,URINE DIPSTICK 2+ (NEGATIVE); URINE UROBILINOGEN 0.2 mg/dL (0.2 - 1)
[2021-09-26 20:05] LABS: RBC,URINE 0-5 /HPF (0-5)
[2021-09-26] MEDS ORDERED: SODIUM CHLORIDE 0.9% 250ML 250 ML ONE (23:13)
[2021-09-27] VITALS (7 sets, daily range): BP systolic 125–156; BP diastolic 93–107
[2021-09-27] MEDS: ALBUTEROL/IPRATROPIUM 3 ML NEB NEB SCH ×6 (02:07→23:00)
[2021-09-27 05:09] LABS: BASOPHILS # (AUTO) 0.1 (0.0-0.1); BASOPHILS % 1.1 % (0.0-1.0); EOSINOPHILS # (AUTO) 0.2 (0.0-0.4); EOSINOPHILS % 2.5 % (0.0-6.0); HEMATOCRIT 41.7 % (38.2-49.6); HEMOGLOBIN 14.3 g/dL (14.0-18.0); LYMPHOCYTES # (AUTO) 2.2 (1.0-3.2); LYMPHOCYTES % 22.3 % (18.0-39.1); MEAN CORPUSCULAR HEMOGLOBIN 30.1 pg (28-32); MEAN CORPUSCULAR HGB CONC 34.3 g/dL (31-35); MEAN CORPUSCULAR VOLUME 87.8 fL (81-99); MONOCYTES # (AUTO) 1.1 (0.2-0.8); MONOCYTES % 10.9 % (4.4-11.3); NEUTROPHILS % 61.9 % (38.7-80.0); PLATELET COUNT 257 x10e3/uL (140-360); RED BLOOD COUNT 4.75 x10e6/uL (4.3-5.7); RED CELL DISTRIBUTION WIDTH 13.9 % (11.7-14.4)
[2021-09-27] MEDS: HYDRALAZINE HCL 20 MG/ML VIAL IV PRN (05:14)
[2021-09-27 05:30] LABS: ANION GAP 12.7 mmol/L (8-16); CALCIUM 8.8 mg/dL (8.4-10.2); CREATININE, SERUM 0.98 mg/dL (0.72-1.25); POTASSIUM 3.7 mmol/L (3.5-5.1)
[2021-09-27] MEDS: INSULIN LISPRO 100 UNIT/1 ML 3ML VIAL SQ SCH ×4 (07:30→21:16)
[2021-09-27] MEDS: HYDRALAZINE HCL 25 MG TAB PO SCH ×2 (09:10→16:34)
[2021-09-27] MEDS: ASPIRIN 81 MG CHEW TAB PO SCH (09:11)
[2021-09-27] MEDS: DULOXETINE HCL 30 MG DELAYED RELEASE PO SCH (09:12)
[2021-09-27] MEDS: CARVEDILOL 12.5 MG TAB PO SCH ×2 (09:12→21:20)
[2021-09-27] MEDS: EMPAGLIFLOZIN 10 MG TABLET PO SCH (09:12)
[2021-09-27] MEDS: AMLODIPINE BESYLATE 10 MG TAB PO SCH (09:12)
[2021-09-27] MEDS: OLMESARTAN 20 MG TAB PO SCH (09:12)
[2021-09-27] MEDS: Morphine 4mg Syringe 4 MG/ML INJ IV PRN ×3 (09:13→19:52)
[2021-09-27] MEDS: ONDANSETRON HCL INJ 2MG/ML 2ML 2 MG/ML VIAL IV PRN ×3 (09:13→19:52)
[2021-09-27] MEDS: IRON SUCROSE 100 MG in SODIUM CHLORIDE 0.9% 100 ML 100 ML IV SCH (09:30)
[2021-09-27] MEDS ORDERED: SODIUM CHLORIDE 0.9% 500ML 0 ML ONE (10:41)
[2021-09-27] MEDS ORDERED: Vancomycin IV 1 GM in SODIUM CHLORIDE 0.9% 250ML 250 ML IV SCH ×2 (13:00→14:00)
[2021-09-27] MEDS ORDERED: SODIUM CHLORIDE 0.9% IV SCH (16:00)
[2021-09-27] MEDS ORDERED: DAPTOMYCIN IV SCH (16:00)
[2021-09-27] MEDS: BUSPIRONE HCL 5 MG TAB PO PRN (21:42)
[2021-09-28] VITALS (7 sets, daily range): BP systolic 107–170; BP diastolic 92–110
[2021-09-28] MEDS: ZOLPIDEM TARTRATE 10 MG TAB PO PRN (02:00)
[2021-09-28] MEDS: ALBUTEROL/IPRATROPIUM 3 ML NEB NEB SCH ×6 (03:00→23:00)
[2021-09-28] MEDS: BUSPIRONE HCL 5 MG TAB PO PRN ×2 (06:43→20:13)
[2021-09-28] MEDS: INSULIN LISPRO 100 UNIT/1 ML 3ML VIAL SQ SCH ×4 (07:30→21:26)
[2021-09-28] MEDS: DULOXETINE HCL 30 MG DELAYED RELEASE PO SCH (08:28)
[2021-09-28] MEDS: EMPAGLIFLOZIN 10 MG TABLET PO SCH (08:28)
[2021-09-28] MEDS: HYDRALAZINE HCL 25 MG TAB PO SCH ×3 (08:29→17:00)
[2021-09-28] MEDS: OLMESARTAN 20 MG TAB PO SCH (08:29)
[2021-09-28] MEDS: ASPIRIN 81 MG CHEW TAB PO SCH (08:29)
[2021-09-28] MEDS: AMLODIPINE BESYLATE 10 MG TAB PO SCH (08:30)
[2021-09-28] MEDS: CARVEDILOL 12.5 MG TAB PO SCH ×2 (08:30→21:13)
[2021-09-28] MEDS: Morphine 4mg Syringe 4 MG/ML INJ IV PRN ×3 (08:41→23:39)
[2021-09-28] MEDS: IRON SUCROSE 100 MG in SODIUM CHLORIDE 0.9% 100 ML 100 ML IV SCH (08:45)
[2021-09-29] MEDS: ALBUTEROL/IPRATROPIUM 3 ML NEB NEB SCH ×6 (02:46→22:30)
[2021-09-29 04:00] VITALS: BP 162/107
[2021-09-29] MEDS: BUSPIRONE HCL 5 MG TAB PO PRN (04:21)
[2021-09-29] MEDS: Morphine 4mg Syringe 4 MG/ML INJ IV PRN ×4 (04:21→21:04)
[2021-09-29] MEDS: ONDANSETRON HCL INJ 2MG/ML 2ML 2 MG/ML VIAL IV PRN ×2 (04:21→21:04)
[2021-09-29 05:58] LABS: ANION GAP 12.8 mmol/L (8-16); CALCIUM 8.9 mg/dL (8.4-10.2); CREATININE, SERUM 1.02 mg/dL (0.72-1.25); POTASSIUM 3.8 mmol/L (3.5-5.1)
[2021-09-29] MEDS: INSULIN LISPRO 100 UNIT/1 ML 3ML VIAL SQ SCH ×4 (07:30→21:00)
[2021-09-29] MEDS: HYDRALAZINE HCL 20 MG/ML VIAL IV PRN (07:47)
[2021-09-29 08:00] VITALS: BP 146/104
[2021-09-29 08:26] VITALS: BP 135/96
[2021-09-29] MEDS: EMPAGLIFLOZIN 10 MG TABLET PO SCH (09:00)
[2021-09-29] MEDS: ASPIRIN 81 MG CHEW TAB PO SCH (09:00)
[2021-09-29] MEDS: DULOXETINE HCL 30 MG DELAYED RELEASE PO SCH (09:00)
[2021-09-29] MEDS: IRON SUCROSE 100 MG in SODIUM CHLORIDE 0.9% 100 ML 100 ML IV SCH (09:13)
[2021-09-29] MEDS: HYDRALAZINE HCL 25 MG TAB PO SCH ×3 (09:14→20:57)
[2021-09-29] MEDS: OLMESARTAN 20 MG TAB PO SCH (09:14)
[2021-09-29] MEDS: CARVEDILOL 12.5 MG TAB PO SCH ×2 (09:15→20:57)
[2021-09-29] MEDS: AMLODIPINE BESYLATE 10 MG TAB PO SCH (09:16)
[2021-09-29 11:57] VITALS: BP 132/92
[2021-09-29] MEDS ORDERED: PROPOFOL IV EMULSION 10 MG/ML 20 ML VIAL ONE (12:11)
[2021-09-29] MEDS ORDERED: EPHEDRINE SULFATE INJ 50 MG/ML VIAL ONE (12:11)
[2021-09-29] MEDS ORDERED: METOCLOPRAMIDE HCL 10 MG/2ML VIAL ONE (12:11)
[2021-09-29] MEDS ORDERED: ONDANSETRON HCL INJ 2MG/ML 2ML 2 MG/ML VIAL ONE (12:11)
[2021-09-29] MEDS ORDERED: POVIDONE IODINE 0.05% 0.05 % ML PO ONE (12:11)
[2021-09-29] MEDS ORDERED: BUPIVACAINE 0.25% 30ML SDV ONE (12:31)
[2021-09-29] MEDS ORDERED: FENTANYL CITRATE/PF 100MCG/2 ML INJ ONE (13:08)
[2021-09-29] MEDS ORDERED: MIDAZOLAM HCL 2 MG/2 ML VIAL ONE (13:08)
[2021-09-29 15:32] VITALS: BP 115/73
[2021-09-29 20:00] VITALS: BP 133/99
[2021-09-30] VITALS: BP 139/88
[2021-09-30] MEDS: ALBUTEROL/IPRATROPIUM 3 ML NEB NEB SCH ×4 (02:15→14:12)
[2021-09-30] MEDS: BUSPIRONE HCL 5 MG TAB PO PRN (03:43)
[2021-09-30] MEDS: ONDANSETRON HCL INJ 2MG/ML 2ML 2 MG/ML VIAL IV PRN (04:21)
[2021-09-30] MEDS: Morphine 4mg Syringe 4 MG/ML INJ IV PRN ×3 (04:21→13:50)
[2021-09-30 05:47] VITALS: BP 155/102
[2021-09-30 06:33] VITALS: BP 149/94
[2021-09-30 06:33] LABS: ANION GAP 13.9 mmol/L (8-16); CALCIUM 9.1 mg/dL (8.4-10.2); CREATININE, SERUM 1.03 mg/dL (0.72-1.25); POTASSIUM 3.9 mmol/L (3.5-5.1)
[2021-09-30] MEDS: INSULIN LISPRO 100 UNIT/1 ML 3ML VIAL SQ SCH ×2 (07:30→11:30)
[2021-09-30] MEDS: HYDROCODONE/APAP 5MG-325MG TAB PO PRN (07:41)
[2021-09-30 08:23] VITALS: BP 149/90
[2021-09-30 08:24] VITALS: BP 149/90
[2021-09-30] MEDS ORDERED: IRON-VITAMIN-MINERAL CAPSULE PO SCH (09:00)
[2021-09-30] MEDS: EMPAGLIFLOZIN 10 MG TABLET PO SCH (09:23)
[2021-09-30] MEDS: OLMESARTAN 20 MG TAB PO SCH (09:23)
[2021-09-30] MEDS: DULOXETINE HCL 30 MG DELAYED RELEASE PO SCH (09:23)
[2021-09-30] MEDS: HYDRALAZINE HCL 25 MG TAB PO SCH ×2 (09:23→14:04)
[2021-09-30] MEDS: CARVEDILOL 12.5 MG TAB PO SCH (09:23)
[2021-09-30] MEDS: ASPIRIN 81 MG CHEW TAB PO SCH (09:23)
[2021-09-30] MEDS: AMLODIPINE BESYLATE 10 MG TAB PO SCH (09:24)
[2021-09-30] MEDS ORDERED: ALPRAZOLAM 0.5 MG TAB PO PRN (11:45)
[2021-09-30] MEDS ORDERED: BUSPIRONE HCL 5 MG TAB PO PRN ×2 (11:45)
[2021-09-30 12:02] VITALS: BP 151/97
== END 2021-09-30 16:28 | DRG 853 ==
LOC: ER 18:29 → ERHOLD 19:31 → ICU 21:14 → MED/SURG3 09-26 16:02
PROVIDERS: ADMIT Internal Medicine; ATTEND Internal Medicine
PROC: 3E03329 Introduction of Other Anti-infective into Peripheral Vein, Percutaneous Approach (ICD-10-PCS; principal; 2021-09-24)
PROC: 30233N1 Transfusion of Nonautologous Red Blood Cells into Peripheral Vein, Percutaneous Approach (ICD-10-PCS; 2021-09-25)
PROC: 0QBL0ZZ Excision of Right Tarsal, Open Approach (ICD-10-PCS; 2021-09-29)
PROC: 3E033XZ Introduction of Vasopressor into Peripheral Vein, Percutaneous Approach (ICD-10-PCS; 2021-09-29)
DX: A41.9 Sepsis, unspecified organism (principal); R65.21 Severe sepsis with septic shock; L02.611 Cutaneous abscess of right foot; N17.9 Acute kidney failure, unspecified; L03.115 Cellulitis of right lower limb; M86.171 Other acute osteomyelitis, right ankle and foot; L97.413 Non-pressure chronic ulcer of right heel and midfoot with necrosis of muscle; E11.610 Type 2 diabetes mellitus with diabetic neuropathic arthropathy; E11.621 Type 2 diabetes mellitus with foot ulcer; E11.69 Type 2 diabetes mellitus with other specified complication; D50.9 Iron deficiency anemia, unspecified; K74.60 Unspecified cirrhosis of liver; E11.22 Type 2 diabetes mellitus with diabetic chronic kidney disease; E11.42 Type 2 diabetes mellitus with diabetic polyneuropathy; I71.4 Abdominal aortic aneurysm, without rupture; D63.1 Anemia in chronic kidney disease; I25.10 Atherosclerotic heart disease of native coronary artery without angina pectoris; I12.9 Hypertensive chronic kidney disease with stage 1 through stage 4 chronic kidney disease, or unspecified chronic kidney disease; E66.9 Obesity, unspecified; N18.31 Chronic kidney disease, stage 3a; Z90.49 Acquired absence of other specified parts of digestive tract; Z72.89 Other problems related to lifestyle; Z20.822 Contact with and (suspected) exposure to COVID-19; Z86.010 Personal history of colon polyps; Z88.1 Allergy status to other antibiotic agents; Z83.3 Family history of diabetes mellitus; G89.4 Chronic pain syndrome; Z68.31 Body mass index [BMI] 31.0-31.9, adult; Z79.82 Long term (current) use of aspirin; Z79.4 Long term (current) use of insulin; Z79.84 Long term (current) use of oral hypoglycemic drugs
CPT/HCPCS: 36415; 71045; 80048; 80053; 81001; 82550; 82553; 82607; 82746; 82948; 83540; 83605; 84466; 84484; 85025; 85045; 86850; 86900; 86920; 87040; 87071; 87075; 87205; 88304; 88305; 88311; 93005; 94640; 94799; 96360; 97139; 99251; 99284; J0360; J0690; J1756; J2250; J2270; J2405; J2543; J2765; J2930; J3010; J3370; J7030; J7040; J7050; P9016; U0002

== ENCOUNTER → 2022-06-22 | Day surgery (SDC) | payer BC ==
[2022-06-21 12:58] LABS: ANION GAP 21.9 mmol/L (8-16); CALCIUM 9.7 mg/dL (8.4-10.2); CREATININE, SERUM 1.49 mg/dL (0.72-1.25); POTASSIUM 3.9 mmol/L (3.5-5.1)
[~2022-06-22] MED LIST changes: +ATORVASTATIN CA20 MG PO; +BUPIVACAINE HCL 0.5% INJ 30 ML VIAL INJ ONE; +CEFAZOLIN SODIUM 2 GM ONE; +DEXAMETHASONE SOD PHOS 10 MG/1 ML VIAL ONE; +FAMOTIDINE 20 MG/2 ML VIAL IV ONE; +FENTANYL CITRATE/PF 100MCG/2 ML INJ ONE; +KETOROLAC TROMETHAMINE 30 MG/ML VIAL ONE; +LIDOCAINE HCL 2% LOCAL INJ 5 ML SDV VIAL INJ ONE; +MIDAZOLAM HCL 2 MG/2 ML VIAL ONE; +NEOSTIGMINE 1 MG/ML 10ML VIAL ONE; +ONDANSETRON HCL INJ 2MG/ML 2ML 2 MG/ML VIAL ONE; +POVIDONE IODINE 0.05% 0.05 % ML PO ONE; +PROPOFOL IV EMULSION 10 MG/ML 20 ML VIAL ONE; +SEVOFLURANE INHAL SOLN 250 ML PEN BTL ONE; +Vancomycin IV 1 GM VIAL ONE
[2022-06-22 16:10] VITALS: BP 113/83
== END | disposition home or self-care (01) ==
LOC: OR 12:40
PROVIDERS: ATTEND Podiatrist Foot & Ankle Surgery
DX: E11.621 Type 2 diabetes mellitus with foot ulcer (principal); L97.513 Non-pressure chronic ulcer of other part of right foot with necrosis of muscle; E11.610 Type 2 diabetes mellitus with diabetic neuropathic arthropathy; M89.9 Disorder of bone, unspecified; E78.5 Hyperlipidemia, unspecified; I10 Essential (primary) hypertension; R06.02 Shortness of breath; K21.9 Gastro-esophageal reflux disease without esophagitis; Z88.1 Allergy status to other antibiotic agents; Z01.810 Encounter for preprocedural cardiovascular examination; Z01.812 Encounter for preprocedural laboratory examination; Z79.4 Long term (current) use of insulin; Z79.84 Long term (current) use of oral hypoglycemic drugs; Z79.899 Other long term (current) drug therapy
CPT/HCPCS: 14040; 28122; 36415 ×2; 80048; 82948; 87071; 87075; 87186; 87205; 88304; 88311; 93005; J1885; J2001; J2250; J2405; J2704; J2710; J3010; J3370; J1100

== ENCOUNTER → 2022-08-31 | Day surgery (SDC) | payer BC ==
[~2022-08-31] MED LIST changes: +ACETAMINOPHEN 1000 MG/100 ML 100 ML IV ONE; -DEXAMETHASONE SOD PHOS 10 MG/1 ML VIAL ONE; -FAMOTIDINE 20 MG/2 ML VIAL IV ONE; +HYDROCHLOROTH12.5 MG PO; +LACTATED RINGER'S 1,000 ML ONE; -MIDAZOLAM HCL 2 MG/2 ML VIAL ONE; -NEOSTIGMINE 1 MG/ML 10ML VIAL ONE; +PANTOPRAZOLE SO20 MG PO; -Vancomycin IV 1 GM VIAL ONE
[2022-08-31 12:49] LABS: ANION GAP 18.5 mmol/L (8-16); CALCIUM 9.5 mg/dL (8.4-10.2); CREATININE, SERUM 1.43 mg/dL (0.72-1.25); POTASSIUM 4.5 mmol/L (3.5-5.1)
[2022-08-31] MEDS: HYDROMORPHONE 1MG/1ML INJ ONE ×5 (15:45→16:10)
[2022-08-31] MEDS: HYDRALAZINE HCL 20 MG/ML VIAL ONE ×2 (15:50→16:10)
[2022-08-31 17:00] VITALS: BP 140/92
== END | disposition home or self-care (01) ==
LOC: OR 11:06
PROVIDERS: ATTEND Podiatrist Foot & Ankle Surgery
DX: E11.610 Type 2 diabetes mellitus with diabetic neuropathic arthropathy (principal); M67.01 Short Achilles tendon (acquired), right ankle; E11.621 Type 2 diabetes mellitus with foot ulcer; L97.412 Non-pressure chronic ulcer of right heel and midfoot with fat layer exposed; F41.9 Anxiety disorder, unspecified; F32.A Depression, unspecified; Z79.4 Long term (current) use of insulin; Z79.84 Long term (current) use of oral hypoglycemic drugs; Z79.899 Other long term (current) drug therapy
CPT/HCPCS: 15275; 27685; 28730; 36415; 80048; 82948; C1713 ×9; J0131; J0360; J1170; J1885; J2001; J2405; J2704; J3010; J7121; Q4152

== ENCOUNTER 2022-10-09 18:01 | Inpatient (IN) | payer BC ==
[~2022-10-09] VITALS: Ht 165.1 cm; Wt 84.4 kg
[~2022-10-09 18:01] MED LIST changes: -ACETAMINOPHEN 1000 MG/100 ML 100 ML IV ONE; -BUPIVACAINE HCL 0.5% INJ 30 ML VIAL INJ ONE; -CEFAZOLIN SODIUM 2 GM ONE; -FENTANYL CITRATE/PF 100MCG/2 ML INJ ONE; -KETOROLAC TROMETHAMINE 30 MG/ML VIAL ONE; -LACTATED RINGER'S 1,000 ML ONE; -LIDOCAINE HCL 2% LOCAL INJ 5 ML SDV VIAL INJ ONE; -ONDANSETRON HCL INJ 2MG/ML 2ML 2 MG/ML VIAL ONE; -POVIDONE IODINE 0.05% 0.05 % ML PO ONE; -PROPOFOL IV EMULSION 10 MG/ML 20 ML VIAL ONE; -SEVOFLURANE INHAL SOLN 250 ML PEN BTL ONE
[2022-10-09] MEDS ORDERED: ONDANSETRON HCL INJ 2MG/ML 2ML 2 MG/ML VIAL ONE (19:03)
[2022-10-09] MEDS ORDERED: FENTANYL CITRATE/PF 100MCG/2 ML INJ ONE (19:03)
[2022-10-09] MEDS ORDERED: ONDANSETRON HCL INJ 2MG/ML 2ML 2 MG/ML VIAL IV STA (19:10)
[2022-10-09] MEDS ORDERED: FENTANYL CITRATE/PF 100MCG/2 ML INJ IV ONE (19:15)
[2022-10-09 19:29] LABS: BASOPHILS # (AUTO) 0.1 (0.0-0.1); BASOPHILS % 0.8 % (0.0-1.0); EOSINOPHILS # (AUTO) 0.5 (0.0-0.4); EOSINOPHILS % 4.2 % (0.0-6.0); HEMATOCRIT 33.8 % (38.2-49.6); HEMOGLOBIN 11.3 g/dL (14.0-18.0); LYMPHOCYTES # (AUTO) 2.5 (1.0-3.2); LYMPHOCYTES % 22.1 % (18.0-39.1); MEAN CORPUSCULAR HEMOGLOBIN 30.3 pg (28-32); MEAN CORPUSCULAR HGB CONC 33.4 g/dL (31-35); MEAN CORPUSCULAR VOLUME 90.6 fL (81-99); MONOCYTES # (AUTO) 0.8 (0.2-0.8); MONOCYTES % 6.8 % (4.4-11.3); NEUTROPHILS # (AUTO) 7.4 (2.1-6.9); NEUTROPHILS % 65.2 % (38.7-80.0); PLATELET COUNT 190 x10e3/uL (140-360); RED BLOOD COUNT 3.73 x10e6/uL (4.3-5.7); RED CELL DISTRIBUTION WIDTH 12.3 % (11.7-14.4)
[2022-10-09 19:45] LABS: ALBUMIN 3.4 g/dL (3.5-5.0); ALBUMIN/GLOBULIN RATIO 0.7 (0.8-2.0); CALCIUM 8.5 mg/dL (8.4-10.2); CREATININE, SERUM 4.94 mg/dL (0.72-1.25)
[2022-10-09] MEDS ORDERED: SODIUM CHLORIDE 0.9% 1000ML 1,000 ML IV STA (19:50)
[2022-10-09] MEDS: SODIUM CHLORIDE 0.9% 1000ML 1,000 ML IV SCH (23:01)
[2022-10-09 23:20] VITALS: PULSE 88; RESP 24; O2SAT 99
[2022-10-10] MEDS: Morphine 4mg INJECTION 4 MG/ML INJ IV PRN ×2 (01:41→08:04)
[2022-10-10 05:01] LABS: BASOPHILS # (AUTO) 0.1 (0.0-0.1); BASOPHILS % 0.9 % (0.0-1.0); EOSINOPHILS # (AUTO) 0.6 (0.0-0.4); EOSINOPHILS % 6.5 % (0.0-6.0); HEMATOCRIT 30.7 % (38.2-49.6); HEMOGLOBIN 10.4 g/dL (14.0-18.0); LYMPHOCYTES # (AUTO) 1.6 (1.0-3.2); LYMPHOCYTES % 16.8 % (18.0-39.1); MEAN CORPUSCULAR HEMOGLOBIN 30.9 pg (28-32); MEAN CORPUSCULAR HGB CONC 33.9 g/dL (31-35); MEAN CORPUSCULAR VOLUME 91.1 fL (81-99); MONOCYTES # (AUTO) 0.7 (0.2-0.8); MONOCYTES % 6.9 % (4.4-11.3); NEUTROPHILS # (AUTO) 6.6 (2.1-6.9); NEUTROPHILS % 68.2 % (38.7-80.0); PLATELET COUNT 155 x10e3/uL (140-360); RED BLOOD COUNT 3.37 x10e6/uL (4.3-5.7); RED CELL DISTRIBUTION WIDTH 12.4 % (11.7-14.4)
[2022-10-10 05:29] LABS: ALBUMIN/GLOBULIN RATIO 0.7 (0.8-2.0); CALCIUM 7.8 mg/dL (8.4-10.2); CREATININE, SERUM 4.25 mg/dL (0.72-1.25)
[2022-10-10 05:30] LABS: CREATINE KINASE 26 IU/L (30-200)
[2022-10-10] MEDS: SODIUM CHLORIDE 0.9% 1000ML 1,000 ML IV SCH ×2 (06:30→12:57)
[2022-10-10] MEDS: ONDANSETRON HCL INJ 2MG/ML 2ML 2 MG/ML VIAL IV PRN ×2 (08:00→22:05)
[2022-10-10] MEDS ORDERED: ACETAMINOPHEN 325 MG TAB PO PRN (08:45)
[2022-10-10] MEDS ORDERED: DEXTROSE 50% SYRINGE 50 ML IV PRN (09:00)
[2022-10-10] MEDS: DOCUSATE SODIUM 100 MG CAP PO SCH (12:12)
[2022-10-10] MEDS: SENNOSIDES 8.6 MG TAB PO SCH (12:12)
[2022-10-10] MEDS: INSULIN LISPRO 100 UNIT/1 ML 3ML VIAL SQ SCH ×3 (12:13→22:13)
[2022-10-10] MEDS ORDERED: HYDROMORPHONE 1MG/1ML INJ IV PRN (12:45)
[2022-10-10 12:55] VITALS: BP 144/87; PULSE 91; RESP 18; TEMP 98.9; O2SAT 100
[2022-10-10 13:15] LABS: CREATINE KINASE 35 IU/L (30-200)
[2022-10-10 16:40] VITALS: BP 130/96; PULSE 89; RESP 22; TEMP 97.8; O2SAT 97
[2022-10-10] MEDS: HYDROMORPHONE 1MG/1ML INJ IV PRN ×2 (17:02→22:06)
[2022-10-10] MEDS: BUSPIRONE HCL 5 MG TAB PO SCH (19:47)
[2022-10-10] MEDS: HYDROCODONE/APAP 7.5MG-325MG 1 EA TAB PO PRN (19:48)
[2022-10-10] MEDS: GABAPENTIN 400 MG CAP PO SCH (19:49)
[2022-10-10] MEDS: TOBRAMYCIN 0.3% (OPTH) 5 ML BTL OP SCH (19:53)
[2022-10-10] MEDS ORDERED: MUPIROCIN 2% OINT 22 GM TUBE TOP SCH (21:00)
[2022-10-10] MEDS: ZOLPIDEM TARTRATE 5 MG TAB PO SCH (22:05)
[2022-10-10] MEDS: ALPRAZOLAM 0.5 MG TAB PO PRN (22:05)
[2022-10-10] MEDS: MUPIROCIN 2% OINT 22 GM TUBE TOP SCH (22:06)
[2022-10-11] VITALS (8 sets, daily range): BP systolic 104–149; BP diastolic 51–106; PULSE 82–92; RESP 18–20; TEMP 97.6–98.1; O2SAT 96–100
[2022-10-11] MEDS: HYDROCODONE/APAP 7.5MG-325MG 1 EA TAB PO PRN ×6 (01:35→23:52)
[2022-10-11] MEDS: SODIUM CHLORIDE 0.9% 1000ML 1,000 ML IV SCH ×4 (01:36→21:31)
[2022-10-11] MEDS: ONDANSETRON HCL INJ 2MG/ML 2ML 2 MG/ML VIAL IV PRN (04:34)
[2022-10-11] MEDS: HYDROMORPHONE 1MG/1ML INJ IV PRN ×5 (04:34→21:29)
[2022-10-11 05:34] LABS: BASOPHILS # (AUTO) 0.1 (0.0-0.1); BASOPHILS % 1.1 % (0.0-1.0); EOSINOPHILS # (AUTO) 0.8 (0.0-0.4); EOSINOPHILS % 10.1 % (0.0-6.0); HEMATOCRIT 29.2 % (38.2-49.6); HEMOGLOBIN 9.6 g/dL (14.0-18.0); LYMPHOCYTES # (AUTO) 1.1 (1.0-3.2); LYMPHOCYTES % 14.1 % (18.0-39.1); MEAN CORPUSCULAR HEMOGLOBIN 30.2 pg (28-32); MEAN CORPUSCULAR HGB CONC 32.9 g/dL (31-35); MEAN CORPUSCULAR VOLUME 91.8 fL (81-99); MONOCYTES # (AUTO) 0.6 (0.2-0.8); MONOCYTES % 7.6 % (4.4-11.3); NEUTROPHILS % 66.2 % (38.7-80.0); PLATELET COUNT 139 x10e3/uL (140-360); RED BLOOD COUNT 3.18 x10e6/uL (4.3-5.7); RED CELL DISTRIBUTION WIDTH 12.4 % (11.7-14.4)
[2022-10-11 05:59] LABS: ALBUMIN 2.8 g/dL (3.5-5.0); ALBUMIN/GLOBULIN RATIO 0.7 (0.8-2.0); ANION GAP 14.1 mmol/L (8-16); CALCIUM 7.9 mg/dL (8.4-10.2); CREATININE, SERUM 2.98 mg/dL (0.72-1.25); POTASSIUM 4.1 mmol/L (3.5-5.1)
[2022-10-11 06:01] LABS: MAGNESIUM 0.9 MG/DL (1.3-2.1)
[2022-10-11 06:26] LABS: CREATINE KINASE 33 IU/L (30-200)
[2022-10-11] MEDS ORDERED: MAGNESIUM SULFATE 2GM/50ML 50 ML IV ONE ×3 (06:30→12:00)
[2022-10-11] MEDS: DOCUSATE SODIUM 100 MG CAP PO SCH (09:11)
[2022-10-11] MEDS: TOBRAMYCIN 0.3% (OPTH) 5 ML BTL OP SCH ×3 (09:11→19:59)
[2022-10-11] MEDS: SENNOSIDES 8.6 MG TAB PO SCH (09:11)
[2022-10-11] MEDS: BUSPIRONE HCL 5 MG TAB PO SCH ×3 (09:11→19:58)
[2022-10-11] MEDS: GABAPENTIN 400 MG CAP PO SCH (09:12)
[2022-10-11] MEDS: INSULIN LISPRO 100 UNIT/1 ML 3ML VIAL SQ SCH ×4 (09:32→21:34)
[2022-10-11 13:22] LABS: AMPHETAMINES SCREEN,URINE NEGATIVE (NEGATIVE); BENZODIAZEPINES SCREEN,URINE NEGATIVE (NEGATIVE); PHENCYCLIDINE SCREEN,URINE NEGATIVE (NEGATIVE)
[2022-10-11 13:24] LABS: CLARITY,URINE CLEAR (CLEAR); COLOR,URINE YELLOW (YELLOW)
[2022-10-11 13:25] LABS: KETONES,URINE NEGATIVE (NEGATIVE); LEUKOCYTE ESTERASE ,URINE NEGATIVE (NEGATIVE); NITRITE,URINE NEGATIVE (NEGATIVE); PROTEIN,URINE DIPSTICK TRACE (NEGATIVE); URINE UROBILINOGEN 0.2 mg/dL (0.2 - 1)
[2022-10-11 13:30] LABS: BACTERIA,URINE FEW /HPF; EPITHELIAL CELLS,URINE FEW /LPF; RBC,URINE 0-5 /HPF (0-5); TRIPLE PHOSPHATE CRYSTAL,UR MODERATE (FEW); WBC,URINE (MAN) 0-5 /HPF (0-5)
[2022-10-11 13:38] LABS: CREATININE,URINE RANDOM 70.67 mg/dL (63-166); TOTAL PROTEIN, URINE 19.5 mg/dL (1-14)
[2022-10-11] MEDS: GABAPENTIN 300 MG CAP PO SCH (17:30)
[2022-10-11] MEDS: ZOLPIDEM TARTRATE 5 MG TAB PO SCH (19:58)
[2022-10-11] MEDS: MUPIROCIN 2% OINT 22 GM TUBE TOP SCH (19:59)
[2022-10-11] MEDS: ALPRAZOLAM 0.5 MG TAB PO PRN (21:29)
[2022-10-12 00:31] VITALS: BP 147/106; PULSE 93; RESP 18; TEMP 97.7; O2SAT 100
[2022-10-12] MEDS: HYDROMORPHONE 1MG/1ML INJ IV PRN ×4 (01:41→18:42)
[2022-10-12] MEDS: HYDROCODONE/APAP 7.5MG-325MG 1 EA TAB PO PRN ×3 (04:22→18:02)
[2022-10-12 05:50] LABS: BASOPHILS # (AUTO) 0.1 (0.0-0.1); BASOPHILS % 1.1 % (0.0-1.0); EOSINOPHILS # (AUTO) 0.7 (0.0-0.4); EOSINOPHILS % 10.4 % (0.0-6.0); HEMATOCRIT 29.1 % (38.2-49.6); HEMOGLOBIN 9.6 g/dL (14.0-18.0); LYMPHOCYTES # (AUTO) 1.2 (1.0-3.2); MEAN CORPUSCULAR HEMOGLOBIN 30.5 pg (28-32); MEAN CORPUSCULAR VOLUME 92.4 fL (81-99); MONOCYTES # (AUTO) 0.6 (0.2-0.8); MONOCYTES % 9.2 % (4.4-11.3); NEUTROPHILS # (AUTO) 3.9 (2.1-6.9); NEUTROPHILS % 60.5 % (38.7-80.0); PLATELET COUNT 148 x10e3/uL (140-360); RED BLOOD COUNT 3.15 x10e6/uL (4.3-5.7); RED CELL DISTRIBUTION WIDTH 13.1 % (11.7-14.4)
[2022-10-12 06:16] VITALS: BP 160/112; PULSE 98; RESP 18; TEMP 97.7; O2SAT 96
[2022-10-12 06:22] LABS: ALBUMIN 2.9 g/dL (3.5-5.0); ALBUMIN/GLOBULIN RATIO 0.7 (0.8-2.0); ANION GAP 12.8 mmol/L (8-16); CALCIUM 8.2 mg/dL (8.4-10.2); CREATININE, SERUM 1.77 mg/dL (0.72-1.25); POTASSIUM 3.8 mmol/L (3.5-5.1)
[2022-10-12] MEDS: SODIUM CHLORIDE 0.9% 1000ML 1,000 ML IV SCH ×2 (06:30→08:45)
[2022-10-12] MEDS ORDERED: LABETALOL HCL 5 MG/ML 20ML VIAL IV PRN (06:30)
[2022-10-12] MEDS ORDERED: LABETALOL HCL 5 MG/ML 20ML VIAL IV ONE (07:00)
[2022-10-12 07:26] VITALS: BP 143/97; PULSE 88; RESP 18; TEMP 97.6; O2SAT 96
[2022-10-12] MEDS: INSULIN LISPRO 100 UNIT/1 ML 3ML VIAL SQ SCH ×3 (07:30→16:30)
[2022-10-12] MEDS: SENNOSIDES 8.6 MG TAB PO SCH (08:43)
[2022-10-12] MEDS: GABAPENTIN 300 MG CAP PO SCH ×2 (08:43→18:02)
[2022-10-12] MEDS: BUSPIRONE HCL 5 MG TAB PO SCH ×2 (08:43→15:38)
[2022-10-12] MEDS: DOCUSATE SODIUM 100 MG CAP PO SCH (08:44)
[2022-10-12] MEDS: TOBRAMYCIN 0.3% (OPTH) 5 ML BTL OP SCH ×2 (08:44→15:38)
[2022-10-12 09:49] VITALS: BP 171/107; PULSE 95; RESP 21; TEMP 98.4; O2SAT 99
[2022-10-12] MEDS ORDERED: METOCLOPRAMIDE HCL 10 MG TAB PO ONE (12:15)
[2022-10-12] MEDS ORDERED: METOCLOPRAMIDE HCL 10 MG TAB PO SCH (13:00)
[2022-10-12 13:21] VITALS: BP 172/106; PULSE 105; RESP 21; TEMP 97.8; O2SAT 98
[2022-10-12] MEDS ORDERED: ONDANSETRON HCL 4 MG ORAL DISINTEGRATING TAB PO PRN (19:00)
[2022-10-12] MEDS ORDERED: HYDROCODON-ACE1 EAC9 PO (19:06)
[2022-10-12] MEDS ORDERED: ALPRAZOLAM0.5 MG PO (19:06)
[2022-10-12] MEDS ORDERED: BUSPIRONE HCL5 MG PO (19:06)
[2022-10-12] MEDS ORDERED: CLEOCIN HCL300 MG PO (19:06)
[2022-10-12] MEDS ORDERED: GABAPENTIN300 MG PO (19:06)
[2022-10-12] MEDS ORDERED: METOCLOPRAMIDE10 MG PO (19:06)
[2022-10-12] MEDS ORDERED: TOBRAMYCIN SULFA5 ML OP (19:06)
[2022-10-12] MEDS ORDERED: CIPRO500 MG PO (19:06)
[2022-10-12] MEDS ORDERED: MUPIROCIN22 GM TOP (19:06)
[2022-11-07] MEDS ORDERED: NEURONTIN400 MG PO (08:49)
[2022-11-07] MEDS ORDERED: DICYCLOMINE HCL20 MG PO (08:49)
[2022-11-07] MEDS ORDERED: METOCLOPRAMIDE10 MG PO (08:49)
== END 2022-10-12 19:45 | disposition home or self-care (01) | DRG 872 ==
LOC: ER 18:33 → ERHOLD 22:36 → MED/SURG 10-10 12:22
PROVIDERS: ADMIT Internal Medicine; ATTEND Internal Medicine
DX: A41.9 Sepsis, unspecified organism (principal); N17.9 Acute kidney failure, unspecified; L03.115 Cellulitis of right lower limb; L97.518 Non-pressure chronic ulcer of other part of right foot with other specified severity; I12.9 Hypertensive chronic kidney disease with stage 1 through stage 4 chronic kidney disease, or unspecified chronic kidney disease; R65.20 Severe sepsis without septic shock; K74.60 Unspecified cirrhosis of liver; E66.9 Obesity, unspecified; E78.5 Hyperlipidemia, unspecified; E11.22 Type 2 diabetes mellitus with diabetic chronic kidney disease; N18.31 Chronic kidney disease, stage 3a; R55 Syncope and collapse; E11.21 Type 2 diabetes mellitus with diabetic nephropathy; I25.10 Atherosclerotic heart disease of native coronary artery without angina pectoris; R53.1 Weakness; E11.610 Type 2 diabetes mellitus with diabetic neuropathic arthropathy; E11.621 Type 2 diabetes mellitus with foot ulcer; Z96.652 Presence of left artificial knee joint; F15.10 Other stimulant abuse, uncomplicated; I71.40 Abdominal aortic aneurysm, without rupture, unspecified; Z79.84 Long term (current) use of oral hypoglycemic drugs; Z79.4 Long term (current) use of insulin; F17.220 Nicotine dependence, chewing tobacco, uncomplicated; Z83.3 Family history of diabetes mellitus; Z82.49 Family history of ischemic heart disease and other diseases of the circulatory system; Z68.31 Body mass index [BMI] 31.0-31.9, adult
CPT/HCPCS: 36415; 71045; 76770; 80053; 80307; 81001; 82550; 82553; 82570; 82948; 83036; 83605; 83735; 84156; 84484; 85025; 87040; 93005; 94799; 96372; 99252; 99284; J1170; J2270; J2405; J2543; J3475; J7030

== ENCOUNTER → 2022-10-17 | Day surgery (SDC) | payer BC ==
[~2022-10-17] MED LIST changes: +ALPRAZOLAM0.5 MG PO; +BUSPIRONE HCL5 MG PO; +CLEOCIN HCL300 MG PO; +FENTANYL CITRATE/PF 100MCG/2 ML INJ ONE; +GABAPENTIN300 MG PO; +GLUCAGON FOR INJ 1 MG VIAL ONE; +HYDROCODON-ACE1 EAC9 PO; +METOCLOPRAMIDE HCL 10 MG/2ML VIAL ONE; +METOCLOPRAMIDE10 MG PO; +MUPIROCIN22 GM TOP; +PROPOFOL IV EMULSION 10 MG/ML 20 ML VIAL ONE; +PROPOFOL IV EMULSION 10 MG/ML 50 ML VIAL IV ONE; +TOBRAMYCIN SULFA5 ML OP
[2022-10-17 16:42] VITALS: TEMP 98
[2022-10-17 17:05] VITALS: BP 122/77; PULSE 84; RESP 17; O2SAT 97
== END | disposition home or self-care (01) ==
LOC: OR 12:29
PROVIDERS: ATTEND Internal Medicine Gastroenterology
DX: K29.70 Gastritis, unspecified, without bleeding (principal); D12.0 Benign neoplasm of cecum; K52.9 Noninfective gastroenteritis and colitis, unspecified; K22.10 Ulcer of esophagus without bleeding; K62.89 Other specified diseases of anus and rectum; K64.8 Other hemorrhoids; E11.9 Type 2 diabetes mellitus without complications; I10 Essential (primary) hypertension; K21.9 Gastro-esophageal reflux disease without esophagitis; J45.909 Unspecified asthma, uncomplicated; I25.10 Atherosclerotic heart disease of native coronary artery without angina pectoris; I95.1 Orthostatic hypotension; F17.220 Nicotine dependence, chewing tobacco, uncomplicated; Z71.6 Tobacco abuse counseling; Z79.4 Long term (current) use of insulin; Z79.84 Long term (current) use of oral hypoglycemic drugs; Z79.899 Other long term (current) drug therapy; Z79.82 Long term (current) use of aspirin; Z86.16 Personal history of COVID-19
CPT/HCPCS: 36415; 43239; 43450; 45380; 82948; 83630; 83993; 87045; 87177; 87324; 87328; 87449; C9113; J1610; J2704 ×2; J2765; J3010

== ENCOUNTER → 2022-11-09 | Day surgery (SDC) | payer BC ==
[~2022-11-09] MED LIST changes: +ACETAMINOPHEN 1000 MG/100 ML 100 ML IV ONE; +BUPIVACAINE HCL 0.5% INJ 30 ML VIAL INJ ONE; +CEFAZOLIN SODIUM 2 GM ONE; +DICYCLOMINE HCL20 MG PO; +EPHEDRINE SULFATE INJ 50 MG/ML VIAL ONE; -GLUCAGON FOR INJ 1 MG VIAL ONE; +HYDROCODONE/APAP 7.5MG-325MG 1 EA TAB ONE; +HYDROCODONE/APAP 7.5MG-325MG 1 EA TAB PO ONE; +KETOROLAC TROMETHAMINE 30 MG/ML VIAL ONE; +LABETALOL HCL 5 MG/ML 20ML VIAL ONE; +LACTATED RINGER'S 1,000 ML ONE; +LIDOCAINE HCL 2% LOCAL INJ 5 ML SDV VIAL INJ ONE; -METOCLOPRAMIDE HCL 10 MG/2ML VIAL ONE; +NEOSTIGMINE 1 MG/ML 10ML VIAL ONE; +ONDANSETRON HCL INJ 2MG/ML 2ML 2 MG/ML VIAL ONE; +POVIDONE IODINE 0.05% 0.05 % ML PO ONE; -PROPOFOL IV EMULSION 10 MG/ML 50 ML VIAL IV ONE; +SEVOFLURANE INHAL SOLN 250 ML PEN BTL ONE; +SUGAMMADEX SODIUM 200 MG/2 ML VIAL IV ONE
[2022-11-09 11:23] LABS: ANION GAP 14.7 mmol/L (8-16); CALCIUM 8.8 mg/dL (8.4-10.2); CREATININE, SERUM 1.21 mg/dL (0.72-1.25); POTASSIUM 4.7 mmol/L (3.5-5.1)
[2022-11-09 14:07] VITALS: TEMP 98
[2022-11-09 15:20] VITALS: BP 100/79; PULSE 65; RESP 14; O2SAT 97
== END | disposition home or self-care (01) ==
LOC: OR 09:57
PROVIDERS: ATTEND Podiatrist Foot & Ankle Surgery
DX: T84.84XA Pain due to internal orthopedic prosthetic devices, implants and grafts, initial encounter (principal); M96.0 Pseudarthrosis after fusion or arthrodesis; E11.610 Type 2 diabetes mellitus with diabetic neuropathic arthropathy; E11.40 Type 2 diabetes mellitus with diabetic neuropathy, unspecified; G89.29 Other chronic pain; Z91.199 Patient's noncompliance with other medical treatment and regimen due to unspecified reason; I10 Essential (primary) hypertension; E78.5 Hyperlipidemia, unspecified; K21.9 Gastro-esophageal reflux disease without esophagitis; F41.9 Anxiety disorder, unspecified; F31.9 Bipolar disorder, unspecified; Y83.8 Other surgical procedures as the cause of abnormal reaction of the patient, or of later complication, without mention of misadventure at the time of the procedure; Z79.84 Long term (current) use of oral hypoglycemic drugs; Z79.4 Long term (current) use of insulin; Z79.899 Other long term (current) drug therapy
CPT/HCPCS: 28730; 36415; 80048; 82948; 87071; 87075; 87205; C1713; J0131; J1885; J2001; J2405; J2704; J2710; J3010; J3490; J7121